=== PATIENT | male | born 1945 | race Two or more races ===

== ENCOUNTER 2020-09-18 06:30 | Day surgery (SDC) | payer OTHER | END 2020-09-18 10:15 | disposition home or self-care (01) | LOC: AMB-ENDOS 06:30 | PROVIDERS: ATTEND Colon & Rectal Surgery | DX: D12.2 Benign neoplasm of ascending colon (principal); K64.1 Second degree hemorrhoids; Z20.822 Contact with and (suspected) exposure to COVID-19 ==